=== PATIENT | female | born 1990 | race Caucasian/White ===

== ENCOUNTER 2017-08-05 07:34 | Day surgery (SDC) | payer OTHER ==
[~2017-08-05] VITALS: Ht 157.5 cm; Wt 84.5 kg
[~2017-08-05 07:34] MED LIST: ACET325 PO; ACETA500 PO; ADVI200C9 PO; HYDR10SO PO; LEVO100T4 PO; RANI150 PO; ZOFR4TAB3 SL; [UNRECOGNIZED DRUG - CODE] PO
[2017-08-05 07:49] VITALS: BP 147/85; PULSE 74; RESP 20; TEMP 97.9; O2SAT 99
[2017-08-05] MEDS ORDERED: COLE625 PO (07:54)
[2017-08-05] MEDS ORDERED: SODIUM CHLOR 0.9% 1000 ML INJ 1,000 ML IV SCH (08:00)
[2017-08-05 08:39] LABS: AUTOMATED NEUTROPHIL # 4.3 TH/MM3 (1.8-7.7); BASOPHIL % 0.5 % (0.0-2.0); EOSINOPHIL # 0.1 TH/MM3 (0-0.4); EOSINOPHIL % 1.7 % (0.0-4.0); HEMATOCRIT 32.2 % (35.0-46.0); HEMOGLOBIN 11.3 GM/DL (11.6-15.3); LYMPH % 25.4 % (9.0-44.0); LYMPHOCYTE # 1.7 TH/MM3 (1.0-4.8); MEAN CELL VOLUME 80.4 FL (80.0-100.0); MEAN CORPUSCULAR HEMOGLOBIN 28.2 PG (27.0-34.0); MEAN CORPUSCULAR HGB CONC 35.1 % (32.0-36.0); MEAN PLATELET VOLUME 7.6 FL (7.0-11.0); MONO % 7.2 % (0.0-8.0); MONOCYTE # 0.5 TH/MM3 (0-0.9); NEUT % 65.2 % (16.0-70.0); PLATELET COUNT 297 TH/MM3 (150-450); RED CELL DISTRIBUTION WIDTH 15.5 % (11.6-17.2); WHITE BLOOD COUNT 6.6 TH/MM3 (4.0-11.0)
[2017-08-05 08:49] LABS: PROTHROMBIN TIME - PATIENT 9.7 SEC (9.8-11.6)
[2017-08-05 08:54] LABS: ALBUMIN 3.3 GM/DL (3.4-5.0)
[2017-08-05 08:57] LABS: BICARBONATE 23.8 MEQ/L (21.0-32.0); CALCIUM 8.4 MG/DL (8.5-10.1); CREATININE 0.55 MG/DL (0.50-1.00)
--- NOTE | 2017-08-05 09:46 | PD.RAD ---
Post Procedure Progress Note Pre Procedure Diagnosis: (1) Pseudotumor cerebri (2) Headache Post Procedure Diagnosis: (1) Pseudotumor cerebri (2) Headache Procedure Date: Aug 05, 2017 Supervising Radiologist: Cyrus Serrato Estimated blood loss: none Anesthesia: Local Plan of Activity Patient to Unit: [facility] Patient Condition: Good Additional Comments: LP completed without difficulty Opening pressure 20cm/H2O 34 cc clear csf removed. closing pressure 5cm/H2O. headache relieved with csf drainage See PACS Report for procedural detail/treatment Cyrus Serrato MD Aug 05, 2017 09:46
[2017-08-05 09:50] VITALS: BP 107/62; PULSE 54; RESP 20; TEMP 98.5; O2SAT 99
[2017-08-05 10:19] LABS: TOTAL PROTEIN,CSF 24.8 MG/DL (15.0-45.0)
[2017-08-05 10:53] LABS: CSF LYMPHOCYTES 64 %; CSF MONOCYTES 27 %; CSF NEUTROPHILS 9 %; RBC TUBE #4 3 /MM3; WBC TUBE #4 3 /MM3 (0-10)
[2017-08-05 10:55] LABS: SUPERNATE COLOR TUBE #1 CLEAR (CLEAR); VOLUME TUBE # 1 7.8 ML
--- NOTE | 2017-08-05 13:08 | RADRPT ---
EXAM DATE/TIME: 08/05/2017 09:19 [facility] COMPARISON: LUMBAR PUNCTURE W/OPENING PRESSURES, October 10, 2014, 7:08. INDICATIONS : Patient presents with chronic daily headaches and idiopathic intracranial hypertension, in need of a lumbar puncture with opening pressure. 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 PROCEDURE : 1. Fluoroscopic guided lumbar puncture. 2. Recording of opening pressure. The risks, benefits and alternatives to the procedure were explained and verbal and written consent w as obtained. The site was prepped in sterile fashion. Full sterile technique was used, including ca p, mask, sterile gloves and gown and a large sterile sheet. Hand hygiene and 2% chlorhexidine and/or betadine/alcohol prep was utilized per protocol for cutaneous antisepsis. The skin and subcutaneous tissues were infiltrated with local anesthetic solution. With fluoroscopic guidance the lumbar thecal sac was punctured at the above level described above and the opening pressure was recorded. The above described fluid was removed without difficulty. The patient tolerated the procedure well and there were no complications. CONCLUSION: Uncomplicated fluoroscopically guided lumbar puncture with pressures as above. Cyrus Serrato MD on August 05, 2017 at 13:05 Board Certified Radiologist. This report was verified electronically.
[2017-08-06 18:07] LABS: ALBUMIN CSF 11.4 mg/dL (<=27.0); ALBUMIN SERUM 3790 mg/dL (3200 - 4800); IGG CSF 1.1 mg/dL (<=8.1); IGG INDEX CSF 0.43 (<=0.85); IGG SERUM 860 mg/dL (767 - 1590); IGG/ALBUMIN SERUM 0.23 (<=0.40); OLIGOCLONAL BANDING CSF 0 bands; OLIGOCLONAL BANDING INTERPRET 0 bands (<4); OLIGOCLONAL BANDING SERUM 0 bands
== END 2017-08-05 12:00 | disposition home or self-care (01) ==
LOC: HROP 07:34 → HRIP 07:40 → HROP 12:00
PROVIDERS: ATTEND Psychiatry & Neurology Neurology
DX: G93.2 Benign intracranial hypertension (principal); J45.909 Unspecified asthma, uncomplicated; G89.29 Other chronic pain; M54.9 Dorsalgia, unspecified; E07.9 Disorder of thyroid, unspecified; M54.81 Occipital neuralgia; R42 Dizziness and giddiness; E28.2 Polycystic ovarian syndrome; E03.9 Hypothyroidism, unspecified; E23.7 Disorder of pituitary gland, unspecified; Z01.818 Encounter for other preprocedural examination
CPT/HCPCS: 62270; 77003; 80048; 82040; 82042; 82784; 82945; 83873; 83916; 84157; 85025; 85610; 85730; 86592; 87015; 87070; 87102; 87116; 87205; 87206; 88108; 89051

== ENCOUNTER 2017-10-09 18:48 | Emergency (ER) | payer OTHER ==
[~2017-10-09] VITALS: Ht 157.5 cm; Wt 81.0 kg
[~2017-10-09 18:48] MED LIST changes: -ACET325 PO; -ACETA500 PO; -ADVI200C9 PO; +COLE625 PO; -HYDR10SO PO; -LEVO100T4 PO; -RANI150 PO; -ZOFR4TAB3 SL; -[UNRECOGNIZED DRUG - CODE] PO
[2017-10-09 19:23] VITALS: BP 142/97; PULSE 120; RESP 18; TEMP 99.3; O2SAT 100
[2017-10-09] MEDS ORDERED: SODIUM CHLORIDE 0.9% FLUSH 10 ML FLUSH IV FLUSH PRN (21:00)
[2017-10-09 21:01] VITALS: RESP 19; O2SAT 99
[2017-10-09] MEDS ORDERED: SODIUM CHLOR 0.9% 1000 ML INJ 1,000 ML IV ONE (21:15)
[2017-10-09 21:33] LABS: AUTOMATED NEUTROPHIL # 4.8 TH/MM3 (1.8-7.7); BASOPHIL # 0.1 TH/MM3 (0-0.2); BASOPHIL % 0.8 % (0.0-2.0); EOSINOPHIL % 0.4 % (0.0-4.0); HEMATOCRIT 37.7 % (35.0-46.0); HEMOGLOBIN 12.6 GM/DL (11.6-15.3); LYMPH % 25.4 % (9.0-44.0); LYMPHOCYTE # 1.8 TH/MM3 (1.0-4.8); MEAN CELL VOLUME 79.7 FL (80.0-100.0); MEAN CORPUSCULAR HEMOGLOBIN 26.7 PG (27.0-34.0); MEAN CORPUSCULAR HGB CONC 33.5 % (32.0-36.0); MEAN PLATELET VOLUME 7.7 FL (7.0-11.0); MONO % 6.6 % (0.0-8.0); MONOCYTE # 0.5 TH/MM3 (0-0.9); NEUT % 66.8 % (16.0-70.0); PLATELET COUNT 285 TH/MM3 (150-450); RED BLOOD COUNT 4.73 MIL/MM3 (4.00-5.30); RED CELL DISTRIBUTION WIDTH 14.5 % (11.6-17.2); WHITE BLOOD COUNT 7.2 TH/MM3 (4.0-11.0)
[2017-10-09 21:47] LABS: INTERNATIONAL NORMALIZED RATIO 1.1 RATIO; PROTHROMBIN TIME - PATIENT 10.7 SEC (9.8-11.6)
--- NOTE | 2017-10-09 21:54 | PD ---
HPI Chief Complaint: Abdominal Pain Time Seen by Provider: 20:54 Travel History International Travel<30 days: No Contact w/Intl Traveler<30days: No Traveled to known affect area: No History of Present Illness HPI 27 YO F with PMH of pseudotumor cerebri presents to the ED for evaluation of 4 day history of RUQ abdominal pain. Rated 4/10, waxing and waning. Gradual onset. She denies N/V/D. Patient also complains of pruritis of the entire skin surface. She complains of "feeling as if water is running in both my ears." She denies sinus congestion, rhinorrhea, cough. She complains that "a lump grew on my right collarbone, by my neck." She complains of "pooping out a worms egg" a few days ago. She complains of vaginal candidiasis. She denies vaginal discharge or dysuria. She endorses history of cholecystectomy and . She endorses using medical marijuana, both CBD and THC, for her pseudotumor symptoms. She denies alcohol or cigarette use. She denies risk of , states LMP "was at the beginning of this month." PFSH Past Medical History Asthma: Yes Blood Disorders: No Anxiety: Yes Depression: Yes Cancer: No Cardiovascular Problems: No Diabetes: No Diminished Hearing: No Endocrine: No Gastrointestinal Disorders: Yes (IBS) Genitourinary: No Hepatitis: No Hiatal Hernia: Yes Immune Disorder: No Musculoskeletal: Yes (ddd lumbar spine) Neurologic: Yes (dizziness, nausea, migraines) Psychiatric: Yes (anxiety) Reproductive: Yes (pcos) Respiratory: Yes (Asthma) Immunizations Current: No Migraines: Yes Sleep Apnea: Yes Thyroid Disease: No ?: Not Past Surgical History Abdominal Surgery: Yes (cholecystectomy) AICD: No Cholecystectomy: Yes (SEPTEMBER 2012) Gynecologic Surgery: Yes () Joint Replacement: No Pacemaker: No Social History Alcohol Use: Yes Tobacco Use: No Substance Use: Yes (MEDICAL MARIJUANA) Allergies-Medications (Allergen,Severity, Reaction): Coded Allergies: carrot (Unverified Allergy, Unknown, 10/09/17) egg (Unverified Allergy, Unknown, 10/09/17) ipratropium (Unverified Allergy, Unknown, 10/09/17) Reported Meds & Prescriptions Reported Meds & Active Scripts Active Review of Systems Except as stated in HPI: all other systems reviewed are Neg Physical Exam Narrative GENERAL: Well-nourished, well-developed obese, anxious white female in no acute distress.. SKIN: Focused skin assessment warm/dry. Pale areas of erythematous, patchy, blanching rash in the intertriginous areas. A few ecchymosis in various stage of healing of the lower extremities. HEAD: Normocephalic. EYES: No scleral icterus. No injection or drainage. ENT: [place] tympanic movements bilaterally. Oropharynx without erythema, edema, exudate. NECK: Supple, trachea midline. No JVD or lymphadenopathy. No goiter. No thyroid nodule. CARDIOVASCULAR: Regular rate and rhythm without murmurs, gallops, or rubs. RESPIRATORY: Breath sounds clear and equal bilaterally. No accessory muscle use. GASTROINTESTINAL: Abdomen soft, nondistended. Mildly TTP in the RUQ. Active bowel sounds. MUSCULOSKELETAL: No cyanosis, or edema. BACK: Nontender without obvious deformity. No CVA tenderness. Data Data Last Documented VS Vital Signs Date Time Temp Pulse Resp B/P (MAP) Pulse Ox O2 Delivery O2 Flow Rate FiO2 10/09/17 23:11 81 16 138/70 (92) 100 Room Air 10/09/17 19:23 99.3 Orders Orders Complete Blood Count With Diff (10/09/17 20:54) Comprehensive Metabolic Panel (10/09/17 20:54) Lipase (10/09/17 20:54) Lactic Acid (10/09/17 20:54) Prothrombin Time / Inr (Pt) (10/09/17 20:54) Act Partial Throm Time (Ptt) (10/09/17 20:54) Urinalysis - C+S If Indicated (10/09/17 20:54) Iv Access Insert/Monitor (10/09/17 20:54) Ecg Monitoring (10/09/17 20:54) Oximetry (10/09/17 20:54) Sodium Chloride 0.9% Flush (Ns Flush) (10/09/17 21:00) Ed Urine Pregnancytest Poc (10/09/17 20:54) Hydroxyzine Pamoate (Vistaril) (10/09/17 21:15) Sodium Chlor 0.9% 1000 Ml Inj (Ns 1000 M (10/09/17 21:15) Ct Abd/Pel W Iv Contrast(Rout) (10/09/17 21:10) Iohexol 350 Inj (Omnipaque 350 Inj) (10/09/17 22:23) Ct Brain W/O Iv Contrast(Rout) (10/09/17 ) Labs Laboratory Tests Test 10/09/17 21:05 10/09/17 22:00 White Blood Count 7.2 TH/MM3 Red Blood Count 4.73 MIL/MM3 Hemoglobin 12.6 GM/DL Hematocrit 37.7 % Mean Corpuscular Volume 79.7 FL Mean Corpuscular Hemoglobin 26.7 PG Mean Corpuscular Hemoglobin Concent 33.5 % Red Cell Distribution Width 14.5 % Platelet Count 285 TH/MM3 Mean Platelet Volume 7.7 FL Neutrophils (%) (Auto) 66.8 % Lymphocytes (%) (Auto) 25.4 % Monocytes (%) (Auto) 6.6 % Eosinophils (%) (Auto) 0.4 % Basophils (%) (Auto) 0.8 % Neutrophils # (Auto) 4.8 TH/MM3 Lymphocytes # (Auto) 1.8 TH/MM3 Monocytes # (Auto) 0.5 TH/MM3 Eosinophils # (Auto) 0.0 TH/MM3 Basophils # (Auto) 0.1 TH/MM3 CBC Comment DIFF FINAL Differential Comment Prothrombin Time 10.7 SEC Prothromb Time International Ratio 1.1 RATIO Activated Partial Thromboplast Time 31.7 SEC Blood Urea Nitrogen 14 MG/DL Creatinine 0.97 MG/DL Random Glucose 82 MG/DL Total Protein 7.9 GM/DL Albumin 4.1 GM/DL Calcium Level 8.7 MG/DL Alkaline Phosphatase 83 U/L Aspartate Amino Transf (AST/SGOT) 16 U/L Alanine Aminotransferase (ALT/SGPT) 31 U/L Total Bilirubin 0.5 MG/DL Sodium Level 138 MEQ/L Potassium Level 3.5 MEQ/L Chloride Level 110 MEQ/L Carbon Dioxide Level 19.9 MEQ/L Anion Gap 8 MEQ/L Estimat Glomerular Filtration Rate 69 ML/MIN Lactic Acid Level 0.5 mmol/L Lipase 91 U/L Urine Color LIGHT-YELLOW Urine Turbidity HAZY Urine pH 8.0 Urine Specific [place] 1.009 Urine Protein NEG mg/dL Urine Glucose (UA) NEG mg/dL Urine Ketones NEG mg/dL Urine Occult Blood NEG Urine Nitrite NEG Urine Bilirubin NEG Urine Urobilinogen LESS THAN 2.0 MG/DL Urine Leukocyte Esterase NEG Urine RBC 2 /hpf Urine WBC 1 /hpf Urine Squamous Epithelial Cells 12 /hpf Microscopic Urinalysis Comment CULT NOT INDICATED MDM Medical Decision Making Medical Screen Exam Complete: Yes Emergency Medical Condition: Yes Differential Diagnosis Pancreatitis versus bowel obstruction versus anxiety versus intertriginous candidiasis versus otitis media versus pruritus versus other Narrative Course 27 YO F with PMH of pseudotumor cerebri presents to the ED for evaluation multiple medical complaints including 4 day history of RUQ abdominal pain, pruritis of the entire skin surface, "feeling as if water is running in both my ears, a lump grew on my right collarbone, by my neck, pooping out a worms egg," vaginal candidiasis. She endorses history of cholecystectomy and . She endorses using medical marijuana, both CBD and THC, for her pseudotumor symptoms. She denies alcohol or cigarette use. She denies risk of , states LMP "was at the beginning of this month." The patient is tachycardic in triage but this resolves in the exam room. On exam this is an anxious- appearing obese white female in no acute distress. Patient does have intertriginous candidiasis but the exam is otherwise completely reassuring. IV was established. Patient was administered a liter of normal saline IV and 50 mg of Vistaril by mouth. CBC, CMP and UA are without concerning abnormalities. Lactic acid 0.5. UA: No culture indicated. ED urine test negative. CT abdomen and pelvis: Negative abdomen and pelvis with contrast per radiology read. After I informed the patient that the workup was negative and she would be going home she begins roll her eyes around in her head and say that she feels weird. She states the sensation is different than her normal headaches. She states that she is very sensitive to light. She then tells me that she thinks she has a worm in her right eye. I asked the patient why this came to her mind , if she thought she might of had an exposure. She is unable to explain why she has this fear of parasites. Neuro exam is unremarkable. Right eye is clear, no limitations to ROM. No evidence of stye. Pupils equal and reactive. CT brain: Normal examination. I explained to the patient that her fear of parasites is unfounded. I recommended that she follow with her primary care provider or psychiatrist if this perseveration persists. She indicated understanding of instructions. She is stable and discharged home. Diagnosis Primary Impression: Abdominal pain Qualified Codes: R10.12 - Left upper quadrant pain Additional Impression: Anxiety Referrals: Primary Care Physician Patient Instructions: Abdominal Pain (ED), General Instructions Additional Instructions: Rest, hydrate. Eat a bland diet for the next few days and gradually reintroduce new foods. Follow up with the primary care. Return to the ED for worsening symptoms or any urgent or emergent medical condition. Disposition: 01 DISCHARGE HOME Condition: Stable Ruby Drake Oct 09, 2017 21:54
[2017-10-09 22:03] LABS: ALBUMIN 4.1 GM/DL (3.4-5.0); BICARBONATE 19.9 MEQ/L (21.0-32.0); BLOOD UREA NITROGEN 14 MG/DL (7-18); CALCIUM 8.7 MG/DL (8.5-10.1); CHLORIDE 110 MEQ/L (98-107); CREATININE 0.97 MG/DL (0.50-1.00); GLOMERULAR FILTRATION RATE 69 ML/MIN (>89); GLUCOSE,RANDOM 82 MG/DL (74-106); SODIUM (NA) 138 MEQ/L (136-145)
[2017-10-09 22:04] LABS: ALT (GPT) 31 U/L (10-53); AST (GOT) 16 U/L (15-37)
[2017-10-09 22:07] LABS: ALKALINE PHOSPHATASE 83 U/L (45-117); TOTAL BILIRUBIN ADULT 0.5 MG/DL (0.2-1.0); TOTAL PROTEIN 7.9 GM/DL (6.4-8.2)
[2017-10-09] MEDS ORDERED: IOHEXOL 350 MG/ML 10 ML VIAL (for RAD DIAG) IVCONTRAST ONE (22:23)
[2017-10-09 22:37] LABS: BILIRUBIN, URINE NEG (NEG); BLOOD, URINE NEG (NEG); GLUCOSE,URINE NEG (NEG); KETONE, URINE NEG (NEG); NITRITE,URINE NEG (NEG); SQUAMOUS EPITHELIAL CELL URINE 12 /hpf (0-5); URINE COLOR LIGHT-YELLOW (YELLW/STRAW); URINE LEUKOCYTE ESTERASE NEG (NEG)
--- NOTE | 2017-10-09 22:38 | RADRPT ---
EXAM DATE/TIME: 10/09/2017 22:20 [facility] COMPARISON: No previous studies available for comparison. INDICATIONS : Left upper quadrant pain. IV CONTRAST: 97 cc Omnipaque 350 (iohexol) IV ORAL CONTRAST: No oral contrast ingested. RADIATION DOSE: 14.36 CTDIvol (mGy) MEDICAL HISTORY : Inflammatory bowel disease. Hiatal hernia, Asthma SURGICAL HISTORY : None. ENCOUNTER: Initial ACUITY: 1 day PAIN SCALE: 6/10 LOCATION: abdomen TECHNIQUE: Volumetric scanning of the abdomen and pelvis was performed. Using automated exposure control and ad justment of the mA and/or kV according to patient size, radiation dose was kept as low as reasonably achievable to obtain optimal diagnostic quality images. DICOM format image data is available electro nically for review and comparison. FINDINGS: LOWER LUNGS: The visualized lower lungs are clear. LIVER: Homogeneous density without lesion. There is no dilation of the biliary tree. The gallbladder is no t identified. (Gallbladder was also not identified on a prior CT in 2012) SPLEEN: Normal size without lesion. PANCREAS: Within normal limits. KIDNEYS: Normal in size and shape. There is no mass, stone or hydronephrosis. ADRENAL GLANDS: Within normal limits. VASCULAR: There is no aortic aneurysm. BOWEL/MESENTERY: No dilated loops of small or large bowel. The cecum is located in the pelvis adjacent to the right a dnexa and urinary bladder. The appendix is not identified but no induration seen about the cecum. N o evidence of free fluid. ABDOMINAL WALL: Within normal limits. RETROPERITONEUM: There is no lymphadenopathy. BLADDER: No wall thickening or mass. REPRODUCTIVE: Uterus has a normal appearance. Bilateral low density areas in the adnexa measuring up to 3 cm, poss ibly representing ovarian cysts. INGUINAL: There is no lymphadenopathy or hernia. MUSCULOSKELETAL: Within normal limits for patient age. CONCLUSION: 1. Negative CT abdomen/pelvis with contrast. Evan Alcantar MD on October 09, 2017 at 22:33 Board Certified Radiologist. This report was verified electronically.
[2017-10-09 23:11] VITALS: BP 138/70; PULSE 81; RESP 16; O2SAT 100
--- NOTE | 2017-10-10 00:44 | RADRPT ---
EXAM DATE/TIME: 10/10/2017 00:35 [facility] COMPARISON: CT BRAIN W/O CONTRAST, May 28, 2013, 2:52. INDICATIONS : Cephalgia. RADIATION DOSE: 39.15 CTDIvol (mGy) MEDICAL HISTORY : None SURGICAL HISTORY : Cholecystectomy. section. ENCOUNTER: Initial ACUITY: 1 day PAIN SCALE: 7/10 LOCATION: cranial TECHNIQUE: Multiple contiguous axial images were obtained of the head. Using automated exposure control and adj ustment of the mA and/or kV according to patient size, radiation dose was kept as low as reasonably a chievable to obtain optimal diagnostic quality images. DICOM format image data is available electro nically for review and comparison. FINDINGS: CEREBRUM: The ventricles are normal for age. No evidence of midline shift, mass lesion, hemorrhage or acute in farction. No extra-axial fluid collections are seen. POSTERIOR FOSSA: The cerebellum and brainstem are intact. The 4th ventricle is midline. The cerebellopontine angle i s unremarkable. EXTRACRANIAL: The visualized portion of the orbits is intact. SKULL: The calvaria is intact. No evidence of skull fracture. CONCLUSION: Normal examination. Evan Brown Jr., MD on October 10, 2017 at 0:42 Board Certified Radiologist. This report was verified electronically.
== END 2017-10-10 03:07 | disposition home or self-care (01) ==
LOC: NEPE 18:48 → NEDA 23:58 → UNDOADMOB 23:58 → NEPE 10-10 03:07
DX: R10.11 Right upper quadrant pain (principal); R10.12 Left upper quadrant pain; F41.9 Anxiety disorder, unspecified
CPT/HCPCS: 70450; 74177; 80053; 81001; 83605; 83690; 84703; 85025; 85610; 85730; 96360; 99284; J7030; Q9967

== ENCOUNTER 2017-10-11 10:44 | Emergency (ER) | payer OTHER ==
[2017-10-11 11:07] VITALS: BP 136/72; PULSE 73; RESP 20; TEMP 97.7; O2SAT 99
--- NOTE | 2017-10-11 11:55 | RADRPT ---
EXAM DATE/TIME: 10/11/2017 11:36 [facility] COMPARISON: No previous studies available for comparison. INDICATIONS : Shortness of breath, chest tightness, and palpitations for five days. MEDICAL HISTORY : None. SURGICAL HISTORY : None. Cholecystectomy. section. ENCOUNTER: Initial ACUITY: 4 - 6 days PAIN SCORE: 0/10 LOCATION: Bilateral chest FINDINGS: PA and lateral views of the chest demonstrate the lungs to be symmetrically aerated without evidence of mass, infiltrate or effusion. The cardiomediastinal contours are unremarkable. Osseous structure s are intact. CONCLUSION: 1. No acute cardiopulmonary disease. Edouard Catalan MD on October 11, 2017 at 11:53 Board Certified Radiologist. This report was verified electronically.
[2017-10-11 12:14] LABS: AUTOMATED NEUTROPHIL # 3.6 TH/MM3 (1.8-7.7); BASOPHIL # 0.1 TH/MM3 (0-0.2); BASOPHIL % 0.9 % (0.0-2.0); EOSINOPHIL % 0.7 % (0.0-4.0); HEMATOCRIT 36.8 % (35.0-46.0); HEMOGLOBIN 12.6 GM/DL (11.6-15.3); LYMPH % 25.5 % (9.0-44.0); LYMPHOCYTE # 1.4 TH/MM3 (1.0-4.8); MEAN CORPUSCULAR HEMOGLOBIN 27.4 PG (27.0-34.0); MEAN CORPUSCULAR HGB CONC 34.3 % (32.0-36.0); MEAN PLATELET VOLUME 7.8 FL (7.0-11.0); MONO % 6.9 % (0.0-8.0); MONOCYTE # 0.4 TH/MM3 (0-0.9); PLATELET COUNT 290 TH/MM3 (150-450); RED CELL DISTRIBUTION WIDTH 14.4 % (11.6-17.2); WHITE BLOOD COUNT 5.5 TH/MM3 (4.0-11.0)
[2017-10-11 12:34] LABS: BICARBONATE 21.7 MEQ/L (21.0-32.0); BLOOD UREA NITROGEN 13 MG/DL (7-18); CALCIUM 9.5 MG/DL (8.5-10.1); CHLORIDE 108 MEQ/L (98-107); CREATININE 0.68 MG/DL (0.50-1.00); GLOMERULAR FILTRATION RATE 104 ML/MIN (>89); GLUCOSE,RANDOM 84 MG/DL (74-106); SODIUM (NA) 139 MEQ/L (136-145)
[2017-10-11 12:38] LABS: TROPONIN I LESS THAN 0.02 NG/ML (0.02-0.05)
[2017-10-11 13:23] VITALS: O2SAT 100
--- NOTE | 2017-10-11 15:09 | PD ---
HPI Chief Complaint: Cardiac Complaint Time Seen by Provider: 14:18 Travel History International Travel<30 days: No Contact w/Intl Traveler<30days: No Traveled to known affect area: No History of Present Illness HPI The patient was seen and examined in the presence of the nurse. This patient complains of multiple things. She has palpitations. She complains of sensation of feeling cold in her feet. She was seen here 2 days ago had extensive workup which was negative. He reports history of pseudotumor cerebri. She has no fever. She is not having any chest pain. Symptoms severity is moderate. She is tearful and anxious. No alleviating factors. This may be exacerbated by anxiety PFSH Past Medical History Asthma: Yes Blood Disorders: No Anxiety: Yes Depression: Yes Cancer: No Cardiovascular Problems: No Diabetes: No Diminished Hearing: No Endocrine: No Gastrointestinal Disorders: Yes (IBS) Genitourinary: No Hepatitis: No Hiatal Hernia: Yes Immune Disorder: No Musculoskeletal: Yes (ddd lumbar spine) Neurologic: Yes (dizziness, nausea, migraines) Psychiatric: Yes (anxiety) Reproductive: Yes (pcos) Respiratory: Yes (Asthma) Immunizations Current: No Migraines: Yes Sleep Apnea: Yes Thyroid Disease: No ?: Unknown LMP: "BEGINNING OF THIS MONTH" Past Surgical History Abdominal Surgery: Yes (cholecystectomy) AICD: No Cholecystectomy: Yes (SEPTEMBER 2012) Gynecologic Surgery: Yes () Joint Replacement: No Pacemaker: No Social History Alcohol Use: Yes Tobacco Use: No Substance Use: Yes (MEDICAL MARIJUANA) Allergies-Medications (Allergen,Severity, Reaction): Coded Allergies: carrot (Unverified Allergy, Unknown, 10/11/17) egg (Unverified Allergy, Unknown, 10/11/17) ipratropium (Unverified Allergy, Unknown, 10/11/17) Reported Meds & Prescriptions Reported Meds & Active Scripts Active Reported Welchol (Colesevelam HCl) 625 Mg Tab 1,875 Mg PO BID Review of Systems General / Constitutional: No: Fever Eyes: No: Visual changes HENT: Positive: Headaches, Lightheadedness Cardiovascular: Positive: Palpitations, No: Chest Pain or Discomfort Respiratory: No: Shortness of Breath Gastrointestinal: No: Abdominal Pain Genitourinary: No: Dysuria Musculoskeletal: No: Pain Skin: No Rash Neurologic: No: Weakness Psychiatric: Positive: Anxiety, No: Depression Endocrine: No: Polydipsia Hematologic/Lymphatic: No: Easy Bruising Physical Exam Narrative GENERAL: Well-nourished, well-developed patient in no apparent distress. SKIN: Focused skin assessment reveals no rash and nodules. Skin is Warm and dry. HEAD: Atraumatic. Normocephalic. EYES: Pupils equal and round. No scleral icterus. No injection or drainage. ENT: No nasal bleeding or discharge. Mucous membranes pink and moist. NECK: Trachea midline. No JVD. CARDIOVASCULAR: Regular rate and rhythm. No murmur appreciated. RESPIRATORY: No accessory muscle use. Clear to auscultation. Breath sounds equal bilaterally. GASTROINTESTINAL: Abdomen soft, non-tender, nondistended. Hepatic and splenic margins not palpable. MUSCULOSKELETAL: No obvious deformities. No clubbing. No cyanosis. No edema. NEUROLOGICAL: Awake and alert. No obvious cranial nerve deficits. Motor grossly within normal limits. Normal speech. PSYCHIATRIC: Anxious mood and affect; insight and judgment normal. Data Data Last Documented VS Vital Signs Date Time Temp Pulse Resp B/P (MAP) Pulse Ox O2 Delivery O2 Flow Rate FiO2 10/11/17 13:23 100 Room Air 10/11/17 11:07 97.7 73 20 Orders Orders Electrocardiogram (10/11/17:24) Complete Blood Count With Diff (10/11/17:) Basic Metabolic Panel (Bmp) (10/11/17 11:24) Ckmb (Isoenzyme) Profile (10/11/17 11:24) Troponin I (10/11/17:24) Iv Access Insert/Monitor (10/11/17:24) Ecg Monitoring (10/11/17:) Oxygen Administration (10/11/17:24) Oximetry (10/11/17:24) Chest, Pa & Lat (10/11/17:) CKMB (10/11/17:) CKMB% (10/11/17:) Labs Laboratory Tests Test 10/11/17 11:22 White Blood Count 5.5 TH/MM3 Red Blood Count 4.60 MIL/MM3 Hemoglobin 12.6 GM/DL Hematocrit 36.8 % Mean Corpuscular Volume 80.0 FL Mean Corpuscular Hemoglobin 27.4 PG Mean Corpuscular Hemoglobin Concent 34.3 % Red Cell Distribution Width 14.4 % Platelet Count 290 TH/MM3 Mean Platelet Volume 7.8 FL Neutrophils (%) (Auto) 66.0 % Lymphocytes (%) (Auto) 25.5 % Monocytes (%) (Auto) 6.9 % Eosinophils (%) (Auto) 0.7 % Basophils (%) (Auto) 0.9 % Neutrophils # (Auto) 3.6 TH/MM3 Lymphocytes # (Auto) 1.4 TH/MM3 Monocytes # (Auto) 0.4 TH/MM3 Eosinophils # (Auto) 0.0 TH/MM3 Basophils # (Auto) 0.1 TH/MM3 CBC Comment DIFF FINAL Differential Comment Blood Urea Nitrogen 13 MG/DL Creatinine 0.68 MG/DL Random Glucose 84 MG/DL Calcium Level 9.5 MG/DL Sodium Level 139 MEQ/L Potassium Level 3.6 MEQ/L Chloride Level 108 MEQ/L Carbon Dioxide Level 21.7 MEQ/L Anion Gap 9 MEQ/L Estimat Glomerular Filtration Rate 104 ML/MIN Total Creatine Kinase 103 U/L Creatine Kinase MB 2.6 NG/ML Troponin I LESS THAN 0.02 NG/ML MDM Medical Decision Making Medical Screen Exam Complete: Yes Emergency Medical Condition: Yes Medical Record Reviewed: Yes Differential Diagnosis Anxiety, panic disorder, somatoform disorder, cardiac arrhythmia Narrative Course I have reviewed the patient's electronic medical record. I reviewed her extensive workup from 2 days ago Combining that with extensive workup from today, I don't see any objective evidence of emergent condition. Today's labs and EKG and chest x-ray are normal CT scan of abdomen and pelvis and head from 2 days ago negative No objective findings here Extended cardiac monitoring reveals sinus rhythm without ectopy No evidence of arrhythmia Recommend primary care follow-up to discuss all of these issues Diagnosis Primary Impression: Palpitations Additional Impressions: Headache Qualified Codes: R51 - Headache Pseudotumor cerebri Additional Instructions: The patient was advised to follow up with their physician and return if they worsen. Med/Other Pt SpecificInfo: Other Disposition: 01 DISCHARGE HOME Condition: Stable Hai Leos MD Oct 11, 2017 15:09
--- NOTE | 2017-10-12 23:52 | EKG ---
Date Performed: 10/11/2017 Time Performed: 11:17:23 PTAGE: 27 years EKG: SINUS BRADYCARDIA WITH SINUS ARRHYTHMIA BORDERLINE ECG PREVIOUS TRACING : 12/05/2014 11.07 Since the previous tracing, no significant change noted DOCTOR: Ki Huang Interpretating Date/Time 10/12/2017 23:48:09
== END 2017-10-11 16:42 | disposition home or self-care (01) ==
LOC: NEPD 10:44
DX: R00.2 Palpitations (principal); R00.1 Bradycardia, unspecified; R51 Headache; G93.2 Benign intracranial hypertension; F12.90 Cannabis use, unspecified, uncomplicated
CPT/HCPCS: 71046; 80048; 82550; 82552; 84484; 85025; 93005

== ENCOUNTER 2017-10-29 16:11 | Emergency (ER) | payer OTHER ==
[~2017-10-29] VITALS: Ht 157.5 cm; Wt 80.0 kg
[2017-10-29 16:14] VITALS: BP 144/71; PULSE 77; RESP 15; TEMP 98.2; O2SAT 100
[2017-10-29] MEDS ORDERED: ONDANSETRON HCL 4 MG/2 ML VIAL IVP ONE (16:45)
[2017-10-29] MEDS ORDERED: HYDROmorphone HCL PF 1 MG/ML VIAL IVS ONE ×2 (16:45→17:30)
[2017-10-29] MEDS ORDERED: ALPR0.25 PO (16:50)
--- NOTE | 2017-10-29 16:58 | PD ---
HPI Chief Complaint: Numbness/Tingling Time Seen by Provider: 16:27 Travel History International Travel<30 days: No Contact w/Intl Traveler<30days: No Traveled to known affect area: No History of Present Illness HPI Patient comes in today complaining of a tingly sensation to her toes and to her arms as well as low back pain, this appears to get worse whenever the patient is standing. These findings were discussed by the patient with Dr. Villela, a [facility] neurologist, who was concerned that this may be a CSF leak. And refer the patient over to the ER. I received report personally from Dr. Villela Allergy to carrots, egg and ipratropium Past medical history significant for pseudotumor cerebri, sleep apnea, hiatal hernia, IBS, cholecystectomy, PCO S, lumbar spine degenerative disorder, panic disorder, depression, anxiety, . H. pylori, medical marijuana use. PFSH Past Medical History Asthma: Yes Blood Disorders: No Anxiety: Yes Depression: Yes Cancer: No Cardiovascular Problems: No Diabetes: No Diminished Hearing: No Endocrine: No Gastrointestinal Disorders: Yes (IBS) Genitourinary: No Hepatitis: No Hiatal Hernia: Yes Immune Disorder: No Musculoskeletal: Yes (ddd lumbar spine) Neurologic: Yes (dizziness, nausea, migraines, pseudo tumor cerebri) Psychiatric: Yes (anxiety) Reproductive: Yes (pcos) Respiratory: Yes (Asthma) Immunizations Current: No Migraines: Yes Sleep Apnea: Yes Thyroid Disease: No Influenza Vaccination: No ?: Unknown LMP: 09/29/2017 Past Surgical History Abdominal Surgery: Yes (cholecystectomy) AICD: No Section: Yes Cholecystectomy: Yes (SEPTEMBER 2012) Gynecologic Surgery: Yes () Joint Replacement: No Pacemaker: No Social History Alcohol Use: No Tobacco Use: No Substance Use: Yes (MEDICAL MARIJUANA) Allergies-Medications (Allergen,Severity, Reaction): Coded Allergies: carrot (Unverified Allergy, Unknown, 10/29/17) egg (Unverified Allergy, Unknown, 10/29/17) ipratropium (Unverified Allergy, Unknown, 10/29/17) Reported Meds & Prescriptions Reported Meds & Active Scripts Active Zofran Odt (Ondansetron Odt) 4 Mg Tab 4 Mg SL Q8HR PRN Fiorinal-Codeine #3 (Kzwptgjlzo-Drvyzml-Zrsbnfsg-Codeine) 18-788-79-30 Mg Cap 1- 2 Cap PO Q4H PRN Do not exceed 6 capsules/day. Reported Alprazolam 0.25 Mg Tab 0.25 Mg PO BID PRN Welchol (Colesevelam HCl) 625 Mg Tab 1,875 Mg PO BID Review of Systems General / Constitutional: No: Fever Eyes: No: Visual changes HENT: No: Headaches Cardiovascular: No: Chest Pain or Discomfort Respiratory: No: Shortness of Breath Gastrointestinal: No: Abdominal Pain Genitourinary: No: Dysuria Musculoskeletal: No: Pain Skin: No Rash Neurologic: Positive: Paresthesia Psychiatric: No: Depression Endocrine: No: Polydipsia Hematologic/Lymphatic: No: Easy Bruising Physical Exam Narrative GENERAL: SKIN: Warm and dry. HEAD: Atraumatic. Normocephalic. EYES: Pupils equal and round. No scleral icterus. No injection or drainage. ENT: No nasal bleeding or discharge. Mucous membranes pink and moist. NECK: Trachea midline. No JVD. CARDIOVASCULAR: Regular rate and rhythm. RESPIRATORY: No accessory muscle use. Clear to auscultation. Breath sounds equal bilaterally. GASTROINTESTINAL: Abdomen soft, non-tender, nondistended. MUSCULOSKELETAL: Extremities without clubbing, cyanosis, or edema. No obvious deformities. NEUROLOGICAL: Awake and alert. No obvious cranial nerve deficits. Motor grossly within normal limits. Five out of 5 muscle strength in the arms and legs. Normal speech. PSYCHIATRIC: Appropriate mood and affect; insight and judgment normal. Data Data Last Documented VS Vital Signs Date Time Temp Pulse Resp B/P (MAP) Pulse Ox O2 Delivery O2 Flow Rate FiO2 10/29/17 16:14 98.2 77 15 144/71 (95) 100 Orders Orders Iv Access Insert/Monitor (10/29/17 16:44) Ondansetron Inj (Zofran Inj) (10/29/17 16:45) Hydromorphone Pf Inj (Dilaudid Pf Inj) (10/29/17 16:45) Mri L Spine W/O Contrast (10/29/17 ) Hydromorphone Pf Inj (Dilaudid Pf Inj) (10/29/17 17:30) Hydromorphone Pf Inj (Dilaudid Pf Inj) (10/29/17 17:45) MDM Medical Decision Making Medical Screen Exam Complete: Yes Emergency Medical Condition: Yes Medical Record Reviewed: Yes Differential Diagnosis Rule out CSF leak versus degenerative disease lumbar pain versus nonspecific paresthesias versus increased intracranial pressure from pseudotumor cerebri Narrative Course MRI performed and reported by the radiologist as negative for any CSF leak. Additionally on October 11 the patient had CBC that she did not show any leukocytosis, anemia, abnormal platelet count, or left shift. Coagulation profile is within normal limits UA which did not show any evidence of UTI Chemistry evaluation which electrolytes were all within normal limits, normal liver/kidney/pancreatic functions. In addition to the October 11 visit the patient also had an LP performed on August 05, 2017 for which she had an IgG RAVI screen done which were unremarkable , patient also was evaluated by neurology at that point Diagnosis Primary Impression: Headache Qualified Codes: R51 - Headache Patient Instructions: Acute Headache (ED), General Instructions Scripts Ondansetron Odt (Zofran Odt) 4 Mg Tab 4 MG SL Q8HR Y for Nausea/Vomiting, #20 TAB 0 Refills Prov: Kyle Valdovinos MD 10/29/17 Rlpmueoiib-Bvvnhbb-Iyfhyitl-Codeine (Fiorinal-Codeine #3) 45-479-77-30 Mg Cap 1-2 CAP PO Q4H Y for HEADACHE, #12 CAP 0 Refills Do not exceed 6 capsules/day. Prov: Kyle Valdovinos MD 10/29/17 Disposition: 01 DISCHARGE HOME Condition: Stable Kyle Valdovinos MD Oct 29, 2017 16:58
--- NOTE | 2017-10-29 17:43 | RADRPT ---
EXAM DATE/TIME: 10/29/2017 17:17 [facility] COMPARISON: No previous studies available for comparison. INDICATIONS : CSF leak. MEDICAL HISTORY : pseudotumor cerebri. SURGICAL HISTORY : section. Cholecystectomy. ENCOUNTER: Initial ACUITY: 1 day PAIN SCORE: 5/10 LOCATION: [facility] TECHNIQUE: Multiplanar multisequence MRI of the lumbar spine was performed without contrast. FINDINGS: The most caudal appearing lumbar vertebra is numbered as L5. VERTEBRAE: Homogeneous signal. Normal alignment. CONUS: Normal level and configuration. T12-L1: The thecal sac has a normal diameter. No evidence of disc bulge or protrusion. The neural foramina are patent bilaterally. L1-L2: The thecal sac has a normal diameter. No evidence of disc bulge or protrusion. The neural foramina are patent bilaterally. L2-L3: The thecal sac has a normal diameter. No evidence of disc bulge or protrusion. The neural foramina are patent bilaterally. L3-L4: The thecal sac has a normal diameter. No evidence of disc bulge or protrusion. The neural foramina are patent bilaterally. L4-L5: The thecal sac has a normal diameter. No evidence of disc bulge or protrusion. The neural foramina are patent bilaterally. L5-S1: The thecal sac has a normal diameter. No evidence of disc bulge or protrusion. The neural foramina are patent bilaterally. CONCLUSION: Normal examination. Edwin Ferreira MD on October 29, 2017 at 17:40 Board Certified Radiologist. This report was verified electronically.
[2017-10-29] MEDS ORDERED: HYDROmorphone HCL PF 2 MG/ML VIAL IV PUSH ONE (17:45)
[2017-10-29] MEDS ORDERED: ZOFR4TAB3 SL (18:34)
[2017-10-29] MEDS ORDERED: FIOR30CA12 PO (18:34)
== END 2017-10-29 19:56 | disposition home or self-care (01) ==
LOC: NEPE 16:11
DX: G93.2 Benign intracranial hypertension (principal); R51 Headache; J45.909 Unspecified asthma, uncomplicated; F41.0 Panic disorder [episodic paroxysmal anxiety]; F32.9 Major depressive disorder, single episode, unspecified; K58.9 Irritable bowel syndrome, unspecified; M51.36 Other intervertebral disc degeneration, lumbar region; E28.2 Polycystic ovarian syndrome; F12.90 Cannabis use, unspecified, uncomplicated
CPT/HCPCS: 72148; 96374; 96375; 99285; J1170; J2405